=== PATIENT | male | born 1955 | race Caucasian/White ===

== ENCOUNTER → 2017-03-12 | Day surgery (SDC) | payer OTHER ==
[~2017-03-12] VITALS: Ht 180.3 cm; Wt 111.1 kg
[~2017-03-12] MED LIST: ATACAND16 M1 PO; AVODART0.5 M1 PO; CHLORTHALIDONE25 M1 PO; COREG12.5 M1 PO; METFORMIN HCL500 M4 PO; SIMVASTATIN40 M1 PO; VERAPAMIL ER240 M1 PO
--- NOTE | 2017-03-12 11:48 | Operative Report ---
Operative/Inv Procedure Report Surgery Date: 03/12/17 Name of Procedure: 1. Ventral hernia repair with mesh 2. Excision skin tag right axilla Pre-Operative Diagnosis: Ventral hernia Skin tag Post-Operative Diagnosis: Same same Estimated Blood Loss: scant Surgeon/Ecologist: SANDRA LOMAX,AIDAN Cuenca/Mohinder AGOSTO Anesthesia: laryngeal mask airway Implants: Ventral X mesh, 6.4 cm Operative/Procedure Note Note: After informed consent patient brought to the operating room and laid supine. Gen. anesthesia was obtained and his abdomen was prepped and draped. The skin around the periumbilical region was able to local anesthesia. A curvilinear incision was made sharply. Subcutaneous tissues dissected bluntly as well as using cautery. The umbilical stock was then circumferentially dissected and transected with cautery. We exposed the ventral hernia. Hernia was circumferentially dissected with cautery down to the level of the fascia. The neck/sac was incised circumferentially with cautery. The contents were then reduced. The resultant defect was 3 cm transversely. Mesh was chosen for repair. Circumferential preperitoneal planes were then created with cautery and blunt dissection. Hemostasis achieved with direct pressure. The mesh was then placed in the preperitoneal plane and unraveled below the defect. The fascia was closed over the mesh while incorporating the anterior portion of it with interrupted 0 Maxon sutures. The wound was irrigated with saline. The umbilical stock was re-created with 3-0 Vicryl and the incision closed in layers of 3-0 and 4-0 Vicryl. Steri-Strips and sterile dressing applied. Sponge and needle counts are correct. We then turned attention to the right axilla. He was prepped and the skin tag excised sharply and a Band-Aid was applied CC: MAURO LOMAX,SARAHI Montes De Oca
== END ==
LOC: STS 04:17
DX: K43.9 Ventral hernia without obstruction or gangrene (principal); L91.8 Other hypertrophic disorders of the skin; E11.9 Type 2 diabetes mellitus without complications; Z79.84 Long term (current) use of oral hypoglycemic drugs; I10 Essential (primary) hypertension
CPT/HCPCS: 88305; J0690; J2250